=== PATIENT | male | born 2000 ===

== ENCOUNTER 2025-02-16 08:20 | Emergency (ER) | payer OTHER, SELFPAY ==
[2025-02-16 08:26] VITALS: BP 130/85; PULSE 66; O2SAT 98
--- NOTE | 2025-02-16 08:28 | ED_ITS ---
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 He is ambidextrous but done with the right. He states while he was cleaning a shower washing it he did not realize less person who put away a set of knives to the right left it hanging out of the pouch and Wood's sweeping to the right hand up slicing the lateral side of his 5th digit. He denies being on any anticoagulation and has no paresthesias or weakness. Denies any inability to bend his finger. His tetanus status is unknown. No prior injury to his 5th digit before. MD complaint: injury to: right Related Data Allergies Allergy/AdvReac Type Severity Reaction Status Date / Time amoxicillin Allergy Hives Verified 02/16/25 08:46 Physical Exam 2 Vital Signs: Vital Signs: Last Vital Signs Temp 97.3 F 02/16/25 09:55 Pulse 62 02/16/25 09:55 Resp 17 02/16/25 09:55 BP 116/75 02/16/25 09:55 Pulse Ox 97 02/16/25 09:55 O2 Del Method Room Air 02/16/25 09:55 BMI result Body Mass Index 23.0 Const: General: cooperative, healthy appearing, comfortable, no acute distress, well developed, alert, awake and Physically active Nutritional Appearance: average body habitus and well nourished O rientation/consciousness: patient oriented x3 Limitations: no limitations HEENT: Head: Yes normal to inspection, Yes No palpable skull fracture present, Yes normocephalic and Yes atraumatic Ears: hearing grossly normal bilaterally, external ears normal, TM's normal bilaterally, EAC's normal, mastoids normal and no periauricular adenopathy General nose exam: Normal external nose present and Normal nasal mucous membranes and turbinates present Face and sinus: Yes normal facial exam Mouth: Normal oral and palatal mucosa present, lip normal, tongue normal, oropharynx normal and moist mucous membranes Teeth and gingiva: dentition normal Throat: Yes posterior oropharynx normal and Yes uvula midline Eyes: General: appearance normal, both eyes and all related structures A lignment and Position: alignment normal Periorbital: periorbital findings normal Eyelids: Yes eyelids normal Conjunctivae: conjunctivae normal S clerae: sclerae normal Corneas: corneas normal Pupils: Equal, round and reactive pupils present EOM: EOMs intact bilaterally Neck: Neck: Yes normal visual inspection, Yes full ROM, Yes no lymphadenopathy, Yes no meningeal signs and Yes trachea midline Carotids: n ormal carotid upstroke Lymphatic: no lymphadenopathy noted Chest: Chest palpation & inspection: normal inspection of the chest and normal palpation of entire chest wall Resp: Effort & Inspection: normal respiratory effort and able to speak in complete sentences Auscultation: clear to auscultation bilaterally Cardio: Jugular venous distension: no JVD Rate: regular rate Rhythm: r egular rhythm Heart sounds: S1 normal heart sound present and S2 normal heart sound present Peripheral pulses: Peripheral pulses 2+ throughout GI: Inspection: Yes normal to inspection Palpation (GI): Soft to palpation Rectal Exam - Male: Yes deferred : General: Yes no CVA tenderness Back/Spine/Pelvis: Back: no CVA tenderness Cervical Spine: normal cervical lordosis and cervical ROM normal Thoracic/Lumbar Spine: thoracic and lumbar spine normal to inspection and thoraco-lumbar ROM normal Pelvis: no pain with anterior-posterior compression Skin: Other: 8.25 cm of U shaped laceration to the ri ght lateral fifth digit, visible subcutaneous tissue without tendon rupture or arterial bleed, no nailbed involvement, no bony tenderness, cap refill < 3 secs, distal pulses 2+, Full ROM, no deficit in strength or sensation Hair: normal Neuro: General: patient oriented x3, moves all extremities, Normal light touch and pain sensation, no meningeal signs, no focal motor deficits, CN's II-XI intact bilaterally and deep tendon reflexes 2+ bilaterally Cranial nerves: Y es Facial sensation intact/muscles of mastication intact, Yes Equal, round and reactive pupils present, Yes Normal facial strength present and Yes Ability to bilaterally rotate head present Cognition (Neuro): normal cognition Gait exam (Neuro): Normal gait present Motor exam (neuro): 5/5 motor strength present throughout, Pronator motor function not present, no tremor noted, Motor fasciculations not present and Normal motor muscle tone present throughout Extrem: General: Yes full ROM, Yes capillary refill normal and Yes normal exam except as noted Right upper extremity: normal to inspection Shoulder/upper arm images: 1. Right lower extremity: full ROM Left lower extremity: full ROM Medical Decision Making Medical Decision Making [facility] Narrative: Patient presents to ED today for evaluation of laceration to the right fifth digit. ROMEL is sharp object. This is work related. Upon arrival to ED, patient is afebrile with stable vitals and well-appearing.? History and physical as stated above.?? Patient's tetanus was UTD. No evidence of foreign body or bony tenderness, x- rays not indicated. No evidence of arterial bleed or tendon rupture. No evidence of neurovascular compromise. ROM intact. Wound was cleansed and explored. Discussed wound repair options before proceeding with care. Wound was closed with stitches, see procedure note.? Discussed wound care with the patient.? The wound was not contaminated, PO antibiotics were not prescribed. Recommend follow-up either with occupational medicine or here/ UC to have the sutures removed- time frame in plan.? I thoroughly discussed if concerned for any signs of infection to follow up right away.? Discussed symptomatic treatment with the patient. Discussed other return precautions as detailed in plan.? Patient verbalized understanding of the above plan and is in agreement with the above plan.? The patient was discharged home in stable condition with return precautions. Differential Diagnosis Differential Diagnoses: The differential diagnosis associated with the presentation includes See MDM Admission/Observation Consideration of admission/observation: Escalation of care including admission/observation considered Independent Interpretation I performed an independent interpretation of an: Plain X-Ray Interpretation: No F/b Radiology Impression Discussion of test interpretation with radiology: I have reviewed the radiologist's reading. Tests considered The following testing was considered but not selected: xrays of finger: no bony tenderness, no deficit in sensation or ROM Prescription Management I considered prescription management with: Antibiotic Procedures Laceration Laceration 1: Site: upper extremity Side (If applicable): left Size (cm): 8.25 Description: irregular Depth: simple, single layer Local Anesthetic: lidocaine 1% Amount of anesthesia used (mL): 3.0 Pre-repair: wound explored, irrigated extensively and deep structures intact Skin layer closed with: other (polyprolene) Size (cm): 4-0 Number of sutures: 12 Technique: simple, interrupted and skin adhesive (proximal most portion of wound) Discharge Plan Discharge Clinical Impression: Laceration of right little finger Patient Disposition: Home, Self-Care Additional Instructions: You had 12 sutures placed. You have a little dermabond on the most proximal portion- this will wear off in 5-7 days, do not put anything topical on it as it will prematurely break it down. Keep clean and dry for 24 hours. After this showering and washing is OK but no soaking in water until the sutures have been removed. Keep the area clean with gentle soap and water- do not put the wound directly under a high pressure stream of water.? Cover the wound with antibiotic ointment and a band-aid or sterile gauze dressing 2-3 times a day.?(especially with working) You will need your sutures removed in 10 days.? You may return to the work connection here to have these removed or other urgent care facility at your jobs request for wound recheck in 2-3 days and then suture removal. Your tetanus was updated today in [facility] for 10 years. This was a clean wound with no contaminants you are not immunocompromised you did not need oral antibiotics. Return immediately or call your doctor for signs of infection that include the following:? Red streaks from wound or surrounding the wound, pus draining from the wound, increased pain, or fever > 100.4 degrees F.? The amount of scarring will take 6 months to a year to be determined.? To minimize the risk of scarring, avoid prolonged sunlight exposure (i.e., use sunscreen when the sutures are removed). Referrals: Rina Mejia PA [Physician Director Facilities Maintenance, Internal Medicine] Referral Note: wound recheck in 2-3 days and suture removal in 10-12 days Clinical Impression: Laceration of right little finger Stand Alone Forms: Work/School Release Interventions: ED Discharge Assessment Last Done: 02/16/25 09:55 Discharge Date/Time: 02/16/25 09:55 Print Language: Tajik
[2025-02-16 08:43] VITALS: BP 116/75; PULSE 62; RESP 17; TEMP 36.3; O2SAT 97; BMI 23.0
[2025-02-16 08:46] VITALS: BP 116/75; PULSE 62; RESP 17; TEMP 36.3; O2SAT 97
[2025-02-16 09:55] VITALS: BP 116/75; PULSE 62; RESP 17; TEMP 36.3; O2SAT 97
--- OUTSIDE RECORDS SUMMARY | 2025-02-16 10:51 | XMS_ITS | Clinical Summary ---
Author Organization [facility] Address [address] [place] [address] Care Team Providers Care Sound Designer Name Role Phone Reji Pereira MD Primary Care Pr ovider Allergies No known active allergies Medications No known medications Immunizations Immunization Administration Dates Next Due COVID-19, mRNA (Pfizer Pre F all 2022) Monovalent, 30 mcg/0.3 ml 05/13/2021,11/13/2020,08/26/2020 Hep B - 01/26/2006,12/27/2005,06/24/2000 Hib - 07/02/2001, 1,04/29/2000,02/24 IPV 07/02/2001, 1,04/29/2000,02/24 Influenza (SEASONAL) - 02/17/2009,03/18/2008, Influenza,MDCK,trivalent,PF (Flucelvax) 12/26/2020 MMR 03/27/2008,03/30/2001 Meningococcal ACWY (Menactra) 12/26/2020 Meningococcal, Serogroup Unspecified - 2 PCV-20 08/18/2023 Tdap 08/18/2023 Varicella 05/22/2008,12/24/2000 Social History Tobacco Use Types Packs/Day Years Used Date Smoking Tobacco: Some Days Cigarettes Smokeless Tobacco: Never Tobacco Cessation:Ready to Q uit: Not Asked; Counseling Given: Not Answered Comments:1 pack a month. Intimate Partner Violence Answer Date R ecorded Fear of Current or Ex-Partner Not on file Emotionally Abused Not on file 02/05/2023 Physically Abused Not on file 02/05/2023 Sexually Abused Not on file 02/05/2023 Feel Safe at Home Not on file 02/05/2023 Sex and Gender Information Value Date Recorded Sex Assigned at Not on file Legal Sex Male 3:05 PM EDT Gender Identity Not on file Sexual Orientation Not on file Last Filed Vital Signs Vital Sign Reading Time Taken Comments Blood Pressure 110/75 02/05/2023 3:26 PM EDT Pulse 87 02/05/2023 3:26 PM EDT Temperature 37.1 C (98.7 F) 02/05/2023 3:26 PM EDT Respiratory Rate 16 02/05/2023 3:26 PM EDT Oxygen Saturation 97% 02/05/2023 3:26 PM EDT Inhaled Oxygen Concentration - - Weight - - Height - - Body Mass Index - - Plan of Treatment Health Maintenance Due Date Last Done Comments Hepatitis C Screening 1999 Hep B (4 of 4 - 4-dose series) 02/21/2006 01/26/2006, 12/27/2005, 06/24/2000 HPV Vaccine (1 - Male 3-dose series) 12/27/2014 COVID-19 Vaccine (4 - season) 2025 05/13/2021, 11/13/2020, 08/26/2020 Influenza (#1) 2025 12/26/2020, 02/01, 03/18/2008, Additional history exists DTaP/Tdap/Td (2 - Td or Tdap) 08/17/2033 08/18/2023 Zoster (Shingrix) (1 of 2) 12/27/2049 05/22/2008, Hib Completed 07/02/2001, 06/05, 04/29/2000, Additional history exists LDL Cholesterol Discontinued 06/19/2020 Meningococcal ACWY Aged Out 12/26/2020, 08/22/2011 No longer eligible based on patient's age to complete this topic Pneumococcal Completed 08/18/2023 Hep A Aged Out No longer eligi ble based on patient's age to complete this topic Insurance [employer] Care Teams Sound Designer Relationship Specialty Start Date End Date Reji Pereira MD [address] [id number] PCP - General Internal Medicine 02/05/23
--- OUTSIDE RECORDS SUMMARY | 2025-02-16 10:51 | XMS_ITS | Clinical Summary ---
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 anxiety or depression. He has a follow-up with his counselor regularly and he may benefit from seeing a psychiatrist as well. He will ask his therapist about this. There are significant negative family dynamics that attributed to his depression. I'm unsure at this time as truly affecting him. He denies any suicidal or homicidal ideations. He denies any further medication management for his depression at this time. Plan: Follow-up with therapist as recommended and scheduled Refer back to psychiatry as I think he will benefit from full evaluation Follow up with me in one month Immunizations Immunization Administration Dates Next Due COVID-19 (Pre-02/23) Pfizer Vaccine, mRNA, PF 11/13/2020,08/26/2020 DTaP 03/27/2008, 2,06/24/2000,04/29,02/25/2000 Hepatitis B, unspecified formulation 01/26/2006, 12/27/2005,06/24/2000 Hib, unspecified formulation 07/02/2001, 06/24/2000,04/29/2000,02/24 IPV 07/02/2001, 1,04/29/2000,02/24 Influenza Quadrivalent MDCK Preservative Free IM 12/26/2020 Influenza Trivalent MDCK Pre servative Free IM 12/26/2020 Influenza quadrivalent nasal 04/20/2007 Influenza, Unspecified Formulation 02/17/2009,,04/20/2007 MMR 03/27/2008,03/30/2001 Meningococcal ACWY, unspecif ied formulation 08/22/2011 Meningococcal MCV4P 12/26/2020 Meningococcal unknown serogroups 08/22/2011 PPD Test 10/29/2021 Pneumococcal conjugate PCV20 08/18/2023 Pneumococcal conjugate, PCV 7 07/02/2001, 000,02/25/2000 Tdap 08/18/2023,08/22/2011 Varicella 05/22/2008,12/24/2000 Family History Medical History Relation Comments Depression Father Hypertension Father Alcohol abuse Mother Anxiety disorder Mother Drug abuse Mother Hypotension Mother Skin cancer Paternal Grandfather Stomach cancer Paternal Grandfather Throat cancer Paternal Grandfather Anxiety disorder Sister Relation Status Comments Father Alive Mother Alive Paternal Grandfather Sister Alive Social History Tobacco Use Types Packs/Day Years Used Date Smoking Tobacco: Never Cigarettes St d: 2016 Smokeless Tobacco: Never Tobacco Cessation:Counseling Given: Not Answered Alcohol Use Standard Drinks/Week Comments Yes 1 (1 standard drink = 0.6 oz pur e alcohol) Child or Family Care Answer Date Record ed Do you have problems with on e of the following making it difficult for you to work, study, or receive health care? No 08/31/2024 Education Answer Date Recorded Are you interested in help w ith more adult education (for example, completing high school, GED, job training, learning the Filipino language, technical skills, or developing parenting skills)? No 08/31/2024 Are you concerned about learning? Not on file 08/31/2024 No 08/31/2024 Yes 08/31/2024 Food Answer Date Recorded Within the past 6 months we worried whether our food would run out before we got money to buy more. Never True 08/31/2024 Within the past 6 months the food we bought just didn't last and we didn't have enough money to get more. Never True Residential Stability Answer Date Recor ded What is your housing situation today? I have monroe woodall 08/31/2024 How many times have you moved in the past 12 mon ths? One time 08/31/2024 Paying for Meds Answer Date Recorded Do you have trouble paying for medicines? No 08/31/2024 Paying Utility Bills Answer Date Record ed Do you have trouble paying your heating or elect ricity bill? No 08/31/2024 Transportation Answer Date Recorded Has the lack of transportati on kept you from medical appointments or from getting medications? No 08/31/2024 Unemployment Answer Date Recorded Are you currently unemployed or working on a part-time or temporary basis, and looking for work? No 08/31/2024 Digital Access Answer Date Recorded Yes 08/31/2024 No 08/31/2024 Do you have reliable internet access at home? No 08/31/2024 Do you have a device (e.g., phone, tablet, computer) with a working camera? No 08/31/2024 Intimate Partner Violence Answer Date R ecorded Are you denied basic needs s uch as food, clothing, or medical care? No 08/31/2024 In the past 12 months have y ou been in a relationship with a person who hurts, threatens, or tries to control you? No 08/31/2024 Are you denied basic needs s uch as food, clothing, or medical care? No 08/31/2024 In the past 12 months have y ou been in a relationship with a person who hurts, threatens, or tries to control you? No 08/31/2024 Sex and Gender Information Value Date Recorded Sex Assigned at Male 06/30/2018 2:07 PM EST Legal Sex Male 3:07 PM EST Gender Identity Male 06/30/2018 2:07 PM EST Sexual Orientation Not on file Last Filed Vital Signs Vital Sign Reading Time Taken Comments Blood Pressure 118/78 08/31/2024 3:11 PM EDT Pulse 88 08/31/2024 3:11 PM EDT Temperature 36.7 C (98 F) 12/06/2020 11:48 AM EDT Respiratory Rate - - Oxygen Saturation 98% 08/31/2024 3:11 PM EDT Inhaled Oxygen Concentration - - Weight 62.6 kg (138 lb) 08/31/2024 3:11 PM EDT Height 165.1 cm (5' 5 ) 08/31/2024 3:11 PM EDT Body Mass Index 22.96 08/31/2024 3:11 PM EDT Plan of Treatment Health Maintenance Due Date Last Done Comments HPV VACCINES (1 - Male 3-dose series) 12/27/2014 INFLUENZA VACCINE (#1) 2024 , 12/26/2020, 02/17/2009, Additional history exists COVID-19 VACCINE ( season) 2025 05/13/2021, 11/13/2020, 08/26/2020 DEPRESSION SCREENING 08/31/2025 08/31/2024, 09/01/19 SMOKING Hx and SMOKELESS TOBACCO SCREENING 08/31/2025 08/31/2024 Adult Td,Tdap Booster 08/17/2033 08/18/2023, 012 HIB VACCINES Completed 07/02/2001, 06/05, 04/29/2000, Additional history exists MENINGOCOCCAL VACCINES (ACWY) Aged Out 12/26/2020, 08/22/2011 No longer eligibl e based on patient's age to complete this topic HEPATITIS C SCREENING Completed 08/18/2023 HIV ONE-TIME SCREENING (18-65 YEARS) Completed 08/18/2023 PNEUMOCOCCAL VACCINES (0-49 years) Completed 08/18/2023, 07/02/2001, 04/29/2000, Additional history exists HEPATITIS A VACCINES Aged Out No long er eligible based on patient's age to complete this topic MENINGOCOCCAL VACCINES (B) Aged Out N o longer eligible based on patient's age to complete this topic Goals Goal Patient Goal Type Associated Problems Recent Progress Patient-Stated? Author Attend scheduled medical / behavioral health appointments Care Plan Behavioral Health Condition No O'Gypsy Lissette, ACCOUNTING MANAGER CPA Increase understanding of Behavioral Health condition and symptoms Care Plan Behavioral Health Condition No O'Transfer Lissette, ACCOUNTING MANAGER CPA Participate and engage in treatment plan Care Plan Behavioral Health Condition No O'Transfer Lissette, ACCOUNTING MANAGER CPA Self-manage behavioral health condition and symptoms Care Plan Behavioral Health Condition No O'Gypsy, Lissette, ACCOUNTING MANAGER CPA Manage and adhere to medication regime Care Plan Behavioral Health Condition No O'Transfer, Lissette, ACCOUNTING MANAGER CPA Attend scheduled medical / behavioral health appointments Care Plan Behavioral Health Condition No O'Transfer, Lissette, ACCOUNTING MANAGER CPA Increase understanding of Behavioral Health condition and symptoms Care Plan Behavioral Health Condition No O'Gypsy, Lissette, ACCOUNTING MANAGER CPA Participate and engage in treatment plan Care Plan Behavioral Health Condition No O'Gypsy, Lissette, ACCOUNTING MANAGER CPA Self-manage behavioral health condition and symptoms Care Plan Behavioral Health Condition No O'Transfer, Lissette, ACCOUNTING MANAGER CPA Manage and adhere to medication regime Care Plan Behavioral Health Condition No O'Gypsy Lissette, ACCOUNTING MANAGER CPA Medical Devices Not on file Procedures Procedure Name Priority Date/Time Associated Diagnosis Comments HEPATITIS C ANTIBODY WITH REFLEX TO HCV, RNA QUANTITATIVE REAL-TIME PCR Routine 08/18/2023 4:48 PM EDT Need for hepatitis C screening test from Last 3 Months or Most Recently Relevant to Health Maintenance Results * Hepatitis C Antibody with Reflex to HCV, RNA quantitative Real-Time PCR (08/18/2023 4:48 PM EDT) Hepatitis C antibody Non Reactive Non Reactive; Equivocal ;Reactive [facility] Blood 08/18/2023 4:48 PM EDT 08/18/2023 6:14 PM EDT Narrative Resulting Agency Comment No Acacia Schwartz NP LAB BLOOD ORDERABLES Final Resu lt [facility] [address] [place] [address], [facility] from Last 3 Months or Most Recently Relevant to Health Maintenance Additional Health Concerns Active Problems Noted Date Diagnosed Date Behavioral Health Condition 05/22/2021 Behavioral Health Condition 05/22/[address] [place] [address] [address] Care Teams Cost Coordinator Relationship Specialty Start Date End Date Reji Mccurdy MD [address]. [address] [place] [phone] [email or web address] PCP - General Internal Medicine 05/21/17 Sravani Garay NP [address] [place] [phone] [email or web address] Internal Medicine 02/23/20 Leni Sanchez NP [address] [place] [place] [phone] [email or web address] Family Medicine 02/23/20 Diane Marroquin DNP [address] [place] [place] [phone] Nurse Practitioner 02/23/20 Additional Source Comments The information contained in this document represents components of the legal health record. It is not the complete legal health record.[facility]
--- OUTSIDE RECORDS SUMMARY | 2025-02-16 10:51 | XMS_ITS ---
Care Plan Created on: February 16, 2025 Ellis Braxton : 2000 Sex: Male Author Organization [facility] Address [address] [place] [phone] Phone Care Team Providers Care Review Assistant Name Role Phone Reji Mccurdy MD Primary Care Pr ovider Sravani Garay OIL CHANGER Unavailable [phone] Leni Sanchez OIL CHANGER Unavailable Diane Marroquin DNP Unavailable [phone] Active Problems Problem Noted Date Diagnosed Date [...] father's GF, sister, 2 step-sisters. Works at [employer] Pets: 2 dogs one car Exercise: moderate. Walks and bikes for transportation. Hobbies: katr Mental status exam: Alert, oriented, thought content [...] 05/14/2021 Overview (03/02/2024): Followed by: previously Psych [facility] ,Therapy Date of Diagnosis: 04/2021 Complications:anxiety Treatment:not on medication Supporting data at the time of diagnosis: unknown Hospitalizations:04/2020 Clinical Info:previously on lithium and lamotrigene. He stop last 07/2021. Due to inconsistency of taking medications. He is currently not on medication. Previously referred to [facility] case management and social work however patient did not return their call. 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 He reports there [...] on leave. He saw therapy yesterday at [facility] in [place].he reports he has been irritable, angry and very depressed. He reports he has been dealing with mental health in his life. Denies symptoms: chest pain, difficulty concentrating, dizziness, feelings of losing control, insomnia, palpitations, psychomotor agitation, racing thoughts, shortness of breath, sweating. He denies current suicidal and homicidal ideation. Not on current medication. He reports he was admitted at [facility] rehab last 04/2020 due to suicidal thoughts. He has anxiety and depression. He states his symptoms of anxiety and depression has been affecting regular daily life .He previously see a therapist, Venkatesh Steiner, in [place]. He had previously seen a psychiatrist, Alejandro De La Garza, in [place] at the age of 12 or 13 years old. He denies SI, HI, or self-harm. He states he has no plan to harm himself . He wouldn't harm himself. He reports he is grateful for his life. Clinical Updates:08/18/2023: referral to [facility] case management 12/02/2023: referral [facility] psychiatry Assessment & Plan (03/02/2024 12:44 PM EDT): PHQ-9 Total Score: 14 (03/02/2024 12:10 PM) CJ-7 Total Score: 11 (03/02/2024 12:12 PM) Audit-C Score: 0 (08/17/2023 10:07 PM) He reports he has been feeling good. He is currently not on medication. 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 today he reports he has been feeling better. He recently move out from their house, he has been renting his own place in [facility]. 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 [...] AM) He is seeing a therapy at [facility] in [place].he reports he has been irritable, angry and [...] applying for paid family and medical leave. [facility] is followed by social work Patrica Zurita. [...] NO SI/HI I will refer him to [facility] psychiatry for further evaluation, He also given list of psychiatrist to contact if [facility] is not availbe He is not amenable [...] He was [facility]- no answer He has not [...] on medication. Previously seen with psychiatry at [facility]. He reports he has been dealing with mental health in his life. Denies symptoms: chest pain, difficulty concentrating, dizziness, feelings of losing control, insomnia, palpitations, psychomotor agitation, racing thoughts, shortness of breath, sweating. He denies current suicidal and homicidal ideation. Not on current medication. He reports he was admitted at [facility] mental health rehab last 04/2020 due to suicidal thoughts. He has anxiety and depression. He states his symptoms of anxiety and depression has been affecting regular daily life .He previously see a therapist, Venkatesh Steiner, in [place]. He had previously seen a psychiatrist, Alejandro De La Garza, in [place] at the age of 12 or 13 years old. He denies SI, HI, or self-harm. He states he has no plan to harm himself . He wouldn't harm himself. He reports he is grateful for his life. Clinical Updates:12/02/2023: referral to [facility] psychiatry Assessment & Plan (08/31/2024 5:18 PM [...] currently not on medication. 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 today he reports he has been feeling better. He recently move out from their house, he has been renting his own place in [facility]. He is currently working as [employer]. He reports life is too short that [...] AM) He is seeing a therapy at [facility] in [place].he reports he has been irritable, angry and very depressed. He reports he has been dealing with mental health in his life.. He was admitted at [facility] rehab last 04/2020 due to suicidal [...] NO SI/HI I will refer him to [facility] psychiatry for further evaluation, He also given list of psychiatrist to contact if [facility] is not availbe He is not amenable [...] substance or alcohol abuse. Previously referred to [facility] Case management to assist with therapist, and to establish care with psychiatrist given history of bipolar disorder He has not return the health social work professor calls He reports he will call to schedule Follow up in 1 month for recheck Assessment & Plan (08/18/2023 6:57 PM EDT): PHQ-9 Total Score: 14 (08/18/2023 3:45 PM) CJ-7 Total Score: 16 (08/18/2023 3:46 PM) Reports he has a lot of stress at home. Anxiety poorly controlled He is amenable to see therapist Will also refer to [facility] care management that will assist patient with [...] planning to go to graduate school at [employer] and his girlfriend will also be there as well. He is in agreement with calling his insurance company to see if they can find him a therapist I will also place a referral to behavioral health to see if we can locate a therapist for him. He may also follow-up with [employer] [facility] counseling service. Mabry's esophagus determined by endoscopy 08/02 Overview (12/04/2023): Followed by: PCP/GI Dr. Cortes Date of Diagnosis: 09/2023 Complications:positive antibody celiac Treatment:Monitoring Supporting data at the time of diagnosis: 10/05/2023:EGD: Esophageal mucosal changes suspicious for short-segment Mabry's esophagus, classified as Mabry's stage C0-M1 per [place] criteria. - Erythematous mucosa in the antrum. [...] infectious. Schedule for endoscopy and colonoscopy Clinical Phtubjs2410/05/2023:schedule for colonoscopy and endoscopy 10/08/2023: recommend repeat [...] to see a therapist, Venkatesh Steiner, in [place]. He had previously seen a psychiatrist, Alejandro De La Garza, in [place] at the age of 12 or 13 [...] his counselor. I also recommend patient access [facility] resources for emotional and study support the [...] mandated by the court, Venkatesh Steiner in [place].he was in a partial rehab program in [...] to see therapist Will also refer to [facility] care management that will assist patient with [...] Follow up with me in one month Additional Health Concerns Active Problems Noted Date Diagnosed Date Behavioral Health Condition 05/22/2021 Behavioral Health Condition 05/22/2021 Goals Goal Patient Goal Type Associated Problems Recent Progress Patient-Stated? Author Attend scheduled medical / behavioral health appointments Care Plan Behavioral Health Condition No O'Elayne Betancuran, CLIENT TECHNICAL SPECIALIST Increase understanding of Behavioral Health condition and symptoms Care Plan Behavioral Health Condition No O'Elayne Betancuran, CLIENT TECHNICAL SPECIALIST Participate and engage in treatment plan Care Plan Behavioral Health Condition No O'Gypsy Lissette, CLIENT TECHNICAL SPECIALIST Self-manage behavioral health condition and symptoms Care Plan Behavioral Health Condition No O'Gibsonia Lissette, CLIENT TECHNICAL SPECIALIST Manage and adhere to medication regime Care Plan Behavioral Health Condition No O'Gibsonia Lissette, CLIENT TECHNICAL SPECIALIST Attend scheduled medical / behavioral health appointments Care Plan Behavioral Health Condition No O'Gypsy Lissette, CLIENT TECHNICAL SPECIALIST Increase understanding of Behavioral Health condition and symptoms Care Plan Behavioral Health Condition No O'Gypsy Lissette, CLIENT TECHNICAL SPECIALIST Participate and engage in treatment plan Care Plan Behavioral Health Condition No O'Gibsonia Lissette, CLIENT TECHNICAL SPECIALIST Self-manage behavioral health condition and symptoms Care Plan Behavioral Health Condition No O'Gypsy, Lissette, CLIENT TECHNICAL SPECIALIST Manage and adhere to medication regime Care Plan Behavioral Health Condition No O'Gibsonia Lissette, CLIENT TECHNICAL SPECIALIST Interventions Care Plan Interventions Intervention Entry Date Outcome Review environmental and psychosocial triggers that worsen condition 05/22/2021 Provide support for self-management plan success 05/22/2021 Encourage use of patient identified coping skills 05/22/2021 Referral to community resource 05/22/2021 Provide support for self-management plan success 05/22/2021 Provide educational materials for self-management 05/22/2021 Identify poor coping strategies 05/22/2021 Review environmental and psychosocial triggers that worsen condition 05/22/2021 Related Goals and Interventions Goal Associated Intervent ions Increase understanding of Be havioral Health condition and symptoms Provide support for self-management plan success; Provide educational materials for self-management Manage and adhere to medication regime I dentify poor coping strategies; Review environmental and psychosocial triggers that worsen condition Increase understanding of Be havioral Health condition and symptoms Review environmental and psychosocial triggers that worsen condition; Provide support for self-management plan success Participate and engage in treatment plan Encourage use of patient identified coping skills; Referral to community resource
== END 2025-02-16 09:55 | disposition home or self-care (01) ==
PROVIDERS: Emergency Provider Emergency Medicine
DX: S61.216A Laceration without foreign body of right little finger without damage to nail, initial encounter (principal); M79.641 Pain in right hand; W26.0XXA Contact with knife, initial encounter; Y93.9 Activity, unspecified; Y92.9 Unspecified place or not applicable; Y99.0 Civilian activity done for income or pay
CPT/HCPCS: 12004; 99284

== ENCOUNTER → 2025-02-20 13:18 | Outpatient (BNVA) | payer OTHER, SELFPAY | PROVIDERS: Visit Provider Emergency Medicine | DX: S61.216A Laceration without foreign body of right little finger without damage to nail, initial encounter (principal); W26.0XXA Contact with knife, initial encounter | CPT/HCPCS: 99202 ==

== ENCOUNTER → 2025-02-27 07:41 | Outpatient (BNVA) | payer OTHER, SELFPAY | PROVIDERS: Visit Provider Emergency Medicine | DX: Z48.02 Encounter for removal of sutures (principal); S61.216A Laceration without foreign body of right little finger without damage to nail, initial encounter; W26.0XXA Contact with knife, initial encounter; Z02.79 Encounter for issue of other medical certificate | CPT/HCPCS: 99212; 99213 ==